=== PATIENT | male | born 1950 | race Hispanic/Latino ===

== ENCOUNTER 2016-11-18 07:28 | Day surgery (SDC) | payer MEDICARE, BC ==
[2016-11-11 12:31] VITALS: BMI 23.7
[2016-11-18] MEDS ORDERED: Iodixanol 320 MG/ML 200 ML BOTTLE IV ONE (07:58)
[2016-11-18] MEDS ORDERED: Lidocaine 2% Inj (20ml) ONE (07:58)
[2016-11-18] MEDS ORDERED: Nitroglycerin 50mg in D5W 50 MG/250 ML BOTTLE IV ONE (07:58)
[2016-11-18] MEDS ORDERED: Iodixanol 320 mg/ml 150 ml Bottle IV ONE (07:58)
[2016-11-18] MEDS ORDERED: Midazolam 2 MG/2 ML VIAL ONE ×2 (08:35→08:42)
[2016-11-18 08:45] LABS: ADD MANUAL DIFF? NO
[2016-11-18 08:48] LABS: BLOOD UREA NITROGEN 22 mg/dL (7-21); CALCIUM 9.4 mg/dL (8.4-10.5); CARBON DIOXIDE 27 mmol/L (21-33); CHLORIDE 103 mmol/L (98-107); GFR AFRICAN-AMERICAN > 60; GLUCOSE,RANDOM 116 mg/dL (70-110); PARTIAL THROMBOPLASTIN TIME 27.5 Seconds (23.7-30.8); POTASSIUM 4.5 mmol/L (3.6-5.0); SODIUM 138 mmol/L (132-148)
[2016-11-18 08:49] LABS: BASO % 0.6 % (0.0-3.0); EOS % 3.2 % (1.5-5.0); GRAN % 61.5 % (50.0-68.0); LYMPH % 24.4 % (22.0-35.0); MONO % 10.3 % (1.0-6.0); RED CELL DISTRIBUTION WIDTH 13.8 % (11.5-14.5); WHITE BLOOD COUNT 4.7 10^3/ul (4.5-11.0)
[2016-11-18 08:50] LABS: BASO # 0.03 K/mm3 (0.0-2.0); EOS # 0.2 (0.0-0.7); GRAN # 2.88 (1.4-6.5); LYMPH # 1.1 (1.2-3.4); MONO # 0.5 (0.1-0.6)
[2016-11-18 08:51] LABS: HEMATOCRIT 39.1 % (42.0-52.0)
[2016-11-18 08:52] LABS: MEAN CELL VOLUME 92.4 fL (80.0-105.0); MEAN CORPUSCULAR HEMOGLOBIN 31.4 pg (25.0-35.0)
[2016-11-18 08:53] LABS: MEAN PLATELET VOLUME 10.7 fl (7.0-11.0); PLATELET COUNT 144 10^3/uL (120.0-450.0)
[2016-11-18] MEDS ORDERED: Oxycodone/Acetaminophen 5/325 mg Tab PO PRN (10:17)
[2016-11-18] MEDS ORDERED: Sodium Chloride 0.45% 1,000 ML IV SCH (10:30)
[2016-11-18 11:30] VITALS: RESP 20; TEMP 97.3; O2SAT 95
[2016-11-18] MEDS ORDERED: Oxycodone/Acetaminophen 5/325 mg Tab ONE (12:15)
[2016-11-18] MEDS ORDERED: Oxycodone/Acetaminophen 5/325 mg Tab PO ONE (12:26)
[2016-11-18 12:51] VITALS: PULSE 70
[2016-11-18 13:17] VITALS: BP 157/83
--- NOTE | 2016-11-18 19:46 | VASCULAR ---
PROCEDURE: 1. Abdominal aortogram and bilateral lower extremity runoff with left selective views. 2. Left SFA and popliteal artery jet stream atherectomy and drug-eluting balloon angioplasty 3. Left tibioperoneal trunk jet stream atherectomy, angioplasty, and drug-eluting stent placement 4. Left profunda femoral artery origin angioplasty HISTORY: Severe peripheral vascular disease. Bilateral lifestyle -limiting claudication, left greater than right. PHYSICIAN(S): Luke De La O M.D. TECHNIQUE: The relative risks and indications of the procedure were explained to the patient and consent obtained. The patient was hydrated prior to the procedure and the appropriate labs drawn. The patient was placed supine on the arteriogram table and the right groin prepped and draped in the usual sterile fashion. Conscious sedation and monitoring were provided throughout the procedure by a nurse. Via a right common femoral artery approach, a 5 Micronesian sheath was placed in the right groin. Through the sheath and over a guidewire, a 5 Micronesian flush catheter was placed in the abdominal aorta at the level of the renal arteries and a PA DSA abdominal aortogram performed. The catheter was pulled down to the aortic bifurcation and bilateral oblique DSA pelvic arteriograms performed. Overlapping bilateral lower extremity DSA arteriograms were obtained from the inguinal ligaments to the ankles. A 0.035 angled Glidewire was advanced over the bifurcation and placed in the left profunda femoral artery.. A 7 Micronesian 45 cm destination sheath was placed in the left common femoral artery. Heparin 6000 units IV and nitroglycerin in 250 mcg aliquots were given. The origin of the left profunda femoral artery was dilated with 7 mm x 6 cm balloon. A good angiographic result was obtained and no stent was required. A trailblazer catheter was placed in the left common femoral artery. The catheter and angled glidewire were used to negotiate the severe irregular calcified stenoses throughout the left SFA and popliteal arteries. Exchange is made for a 0.014 bare wire in the left peroneal artery. Jet stream atherectomy with a 2.4/3.4 catheter was performed in the proximal left SFA, the distal left SFA, the left popliteal artery above the knee, and in the left tibioperoneal trunk. The left popliteal artery above the knee and entire left SFA were dilated with 6 mm drug- eluting balloons. No stents were required. The left tibioperoneal trunk was dilated with 3.0 mm balloon. A focal dissection was encounter. Subsequently a 3.5 x 26 mm drug-eluting stent was deployed in the left tibioperoneal trunk. Completion arteriograms were obtained. The sheath was removed and hemostasis obtained with a Perclose device. Patient tolerated the procedure well. FINDINGS: Diffuse vascular calcification is noted. There are single renal arteries bilaterally which are widely patent and normal in appearance. The nephrograms are symmetric in appearance. The infrarenal abdominal aorta is widely patent without a radiographically significant stenosis. The aortic bifurcation is widely patent. The common and external iliac arteries are calcified and patent.. The left internal iliac artery is occluded. The right internal iliac artery is patent. Right lower extremity: Moderate posterior plaque is noted in the right common femoral artery. The right profunda femoral artery is hypertrophied. There is diffuse calcified disease of the right SFA. A severe stenosis is noted at the origin of the right SFA. There are severe polypoid calcified stenoses in the distal right SFA and the right popliteal artery above the knee. The right popliteal artery is calcified and continuous. There is 2 vessel runoff via the right posterior tibial and peroneal arteries. The right anterior tibial artery is occluded. Left lower extremity: There is moderate calcified posterior plaque in the left common femoral artery. There is a severe focal stenosis of the left profunda femoral artery origin. Left profunda femoral artery is hypertrophied. There is diffuse polypoid calcified disease of the left SFA. Critical stenoses are seen in the proximal left SFA. Severe stenoses are seen in the distal left SFA. There is a severe calcified focal stenosis of the left popliteal artery above the knee. There is a severe stenosis at the left trifurcation. There is 2 vessel runoff via the left posterior tibial and peroneal arteries. The left anterior tibial artery is atretic and occludes proximally. IMPRESSION: 1.Successful diffuse left SFA jet stream atherectomy and drug-eluting balloon angioplasty. 2. Successful left tibioperoneal trunk jet stream atherectomy, angioplasty, and drug-eluting stent placement. 3. Successful left profunda femoral artery origin angioplasty. 4. Multi focal calcified right SFA stenoses. 5. Two vessel tibial runoff bilaterally.
== END 2016-11-18 15:25 | disposition home or self-care (01) ==
LOC: SDSVAS 07:28
PROVIDERS: ATTEND Radiology Vascular & Interventional Radiology
DX: I70.213 Atherosclerosis of native arteries of extremities with intermittent claudication, bilateral legs (principal); I10 Essential (primary) hypertension; Z87.891 Personal history of nicotine dependence

== ENCOUNTER 2017-12-01 06:22 | Day surgery (SDC) | payer MEDICARE, BC ==
[2016-11-11 12:31] VITALS: BMI 23.7
[2017-12-01 07:19] LABS: BASO # 0.01 K/mm3 (0.0-2.0); BASO % 0.2 % (0.0-3.0); EOS # 0.2 (0.0-0.7); EOS % 3.3 % (1.5-5.0); GRAN # 3.09 (1.4-6.5); GRAN % 64.1 % (50.0-68.0); HEMOGLOBIN 13.4 g/dL (14.0-18.0); LYMPH # 1.1 (1.2-3.4); LYMPH % 23.7 % (22.0-35.0); MEAN CELL VOLUME 91.9 fl (80.0-105.0); MEAN CORPUSCULAR HEMOGLOBIN 30.3 pg (25.0-35.0); MONO # 0.4 (0.1-0.6); MONO % 8.7 % (1.0-6.0); RBC 4.42 10^6/uL (3.5-6.1); RED CELL DISTRIBUTION WIDTH 12.8 % (11.5-14.5); WHITE BLOOD COUNT 4.8 10^3/ul (4.5-11.0)
[2017-12-01 07:23] LABS: BLOOD UREA NITROGEN 27 mg/dL (7-21); CALCIUM 9.5 mg/dL (8.4-10.5); GFR AFRICAN-AMERICAN > 60; GFR NON-AFRICAN AMERICAN > 60; HDL CHOLESTEROL 50 mg/dL (29-60)
[2017-12-01 07:24] LABS: INR 0.99 (0.93-1.08); PROTHROMBIN TIME 11.4 SECONDS (9.4-12.5)
[2017-12-01 07:34] LABS: LDL CHOLESTEROL 87 mg/dL (0-129)
[2017-12-01] MEDS ORDERED: Lidocaine 2% Inj (20ml) ONE (07:35)
[2017-12-01] MEDS ORDERED: Iodixanol 320 MG/ML 100 ML BOTTLE IV ONE (07:35)
[2017-12-01] MEDS ORDERED: Iohexol 350mgl/ml 50 ML ONE (07:35)
[2017-12-01] MEDS ORDERED: Iodixanol 320 MG/ML 200 ML BOTTLE IV ONE (07:35)
[2017-12-01] MEDS ORDERED: Midazolam 2 MG/2 ML VIAL ONE ×2 (08:15→08:23)
[2017-12-01] MEDS ORDERED: Eptifibatide 20 mg/10mL Inj IVP ONE (08:39)
--- NOTE | 2017-12-01 09:10 | CARD ---
APPROVED REPORT EKG Measurement Heart [id number] IN [id number] <Conclusion> Electronic ventricular pacemaker
[2017-12-01] MEDS ORDERED: Sodium Chloride 0.9% 1,000 ML IV SCH (09:30)
--- NOTE | 2017-12-01 10:03 | HP ---
HISTORY OF PRESENT ILLNESS: The patient is a 67 year old man with a past medical history of CAD s/p PCI with stent placement s/p CABG who presented for electively scheduled cardiac catheterization with Dr. Cordero after undergoing an abnormal nuclear stress test. The patient underwent successful PCI with LAKSHMI stent placement to the SVG and was subsequently transferred to the telemetry leahy for post cardiac catheterization care. PAST MEDICAL HISTORY: As per HPI, also, hypertension, hyperlipidemia and right carotid artery stenosis s/p endarterectomy. PAST SURGICAL HISTORY: As per HPI, also pacemaker implantation and right carotid endarterectomy. ALLERGIES: NKDA. MEDICATIONS: Eliquis 5 mg p.o. b.i.d., Aspirin 81 mg p.o. daily, Lipitor 10 mg p.o. daily, Lisinopril 5 mg p.o. daily, Lasix 20 mg p.o. daily, Digoxin 0.25 mg p.o. daily and Carvedilol 6.25 mg p.o. b.i.d. FAMILY HISTORY: Noncontributory. SOCIAL HISTORY: The patient denies any toxic habits. REVIEW OF SYSTEMS: A 14-point review of systems is negative except as per HPI. PHYSICAL EXAMINATION: VITAL SIGNS: Temperature 97.6, pulse 80, blood pressure 137/82, respiratory rate 18, oxygen saturation 98% on room air. GENERAL: No apparent distress. HEENT: PERRL, EOMI. No scleral icterus. No conjunctival pallor. NECK: No JVD. No bruits. LUNGS: Clear to auscultation. CARDIOVASCULAR: Regular rate and rhythm. Normal S1 and S2. ABDOMEN: Normoactive bowel sounds. Soft, nontender and nondistended. EXTREMITIES: No edema. NEUROLOGIC: Awake, alert and oriented x 3. No focal motor deficits. LABORATORY DATA: CBC reviewed and unremarkable. CMP reviewed and unremarkable. ASSESSMENT: The patient is a 67 year old man with a past medical history of CAD s/p PCI with stent placement s/p CABG, HTN and hyperlipidemia who presented for electively scheduled cardiac catheterization after undergoing an abnormal nuclear stress test who is now s/p PCI with LAKSHMI stent placement. PLAN: 1. CAD s/p CABG s/p PCI with LAKSHMI stent placement. Input from Dr. Cordero noted and greatly appreciated. Continue with post cardiac catheterization care as per Dr. Cordero. Resume Aspirin 81 mg p.o. daily, Lipitor 40 mg p.o. daily and Plavix 75 mg p.o. daily. 2. Hypertension. Blood pressure controlled. We will continue to monitor hemodynamics and resume antihypertensives as needed. 3. Hyperlipidemia. Continue Lipitor 40 mg p.o. daily. CODE STATUS: Full code. Dimitri Bruno MD MTDD
--- NOTE | 2017-12-01 13:16 | CARD ---
APPROVED REPORT EKG Measurement Heart [id number] <Conclusion> Electronic ventricular pacemaker
--- NOTE | 2017-12-01 13:54 | CARDCATH ---
PROCEDURE DATE: 12/01/2017 CARDIAC CATHETERIZATION AND PTCA HISTORY: The patient is a 67-year-old male who presents with an abnormal stress test. He is status post coronary artery bypass surgery with documented peripheral vascular disease and PTCA in the past. Because of this, cardiac catheterization was recommended. PROCEDURES: Left heart catheterization with coronary arteriography and left ventriculogram followed by GALVAN, angiogram, supra-aortic valvular injection, saphenous vein graft angiogram as well as PTCA and stent of the saphenous vein graft to the RCA. I performed moderate sedation, which included the presence of an independent trained observer that assisted in monitoring the patient's level of consciousness and physiologic status. After administration of Versed and fentanyl, my intra service time was 30 minutes. The findings on catheterization revealed a left ventricle that revealed an ejection fraction of 40-45% which is better than his stress test report. His coronary anatomy revealed diffuse left main disease with and occluded circumflex artery and occluded and an occluded LAD. The RCA was occluded. The saphenous vein graft to the RCA was patent and provided good antegrade flow to the mid and distal RCA. There was a stent in the midportion that was placed and has a 90% stenoses distal to the stent. The saphenous vein graft to the obtuse marginal branch was found to be patent and provided good antegrade flow. The GALVAN to the LAD was found to be patent and provided good antegrade flow. Supra-aortic valvular injection revealed no aortic insufficiency. The patient was started on intravenous Angiomax. He was in addition given a bolus of intravenous Integrilin. A multipurpose guiding catheter was placed to the the saphenous vein graft to the RCA. An 0.014 ATW wire was used to cross the critical lesion. A 3.5 x 12 mm drug-eluting stent was placed and deployed at 17 atmospheres of pressure in the mid saphenous vein graft lesion. A 4 x 6 mm noncompliant balloon was utilized to post dilate the stent. Repeat coronary arteriography revealed an excellent result with no residual stenosis and SERVANDO III flow. Angio-Seal was used to close the femoral artery site. The patient tolerated the procedure well. In summary, the procedure was successful for PTCA and stent to the saphenous vein graft lesion to the RCA. A 3.5 drug-eluting stent was utilized. Cardiac catheterization revealed: 1. Left ventricle with an EF of 40%-45% (which is better than the reported ejection fraction on stress test). 2. Triple-vessel CAD. 3. Patent GALVAN to the LAD. 4. Patent saphenous vein graft to the circumflex artery. 5. Saphenous vein graft with a 90% stenoses to the RCA. 6. No aortic insufficiency and supra-aortic valvular injection. Given these findings, the patient will need to remain on aspirin and Plavix. After several days, we will restart the patient on Eliquis and stop the aspirin and continue the patient on Eliquis and Plavix. Luke Cordero MD [facility] # [id number]
[2017-12-02 06:34] LABS: BASO # 0.01 K/mm3 (0.0-2.0); BASO % 0.2 % (0.0-3.0); EOS # 0.2 (0.0-0.7); EOS % 4.6 % (1.5-5.0); GRAN # 3.58 (1.4-6.5); LYMPH # 0.9 (1.2-3.4); LYMPH % 17.7 % (22.0-35.0); MEAN CELL VOLUME 91.6 fl (80.0-105.0); MEAN CORPUSCULAR HEMOGLOBIN 30.9 pg (25.0-35.0); MEAN CORPUSCULAR HGB CONC 33.7 g/dl (31.0-37.0); MONO # 0.4 (0.1-0.6); MONO % 8.5 % (1.0-6.0); RBC 4.53 10^6/uL (3.5-6.1); RED CELL DISTRIBUTION WIDTH 12.8 % (11.5-14.5); WHITE BLOOD COUNT 5.2 10^3/ul (4.5-11.0)
[2017-12-02 07:10] LABS: BLOOD UREA NITROGEN 16 mg/dL (7-21); CALCIUM 9.4 mg/dL (8.4-10.5); GFR AFRICAN-AMERICAN > 60; GFR NON-AFRICAN AMERICAN > 60
[2017-12-02 07:45] VITALS: BP 144/77; PULSE 92; RESP 20; TEMP 98.2; O2SAT 96
--- NOTE | 2017-12-02 09:54 | PN ---
DATE: 12/02/2017 CARDIOLOGY FOLLOWUP SUBJECTIVE: The patient is ambulating without symptoms. PHYSICAL EXAMINATION: VITAL SIGNS: Stable, heart rate is a paced rhythm at 90. NECK: Negative JVD. LUNGS: Without rales. HEART: Reveals S1, S2. EXTREMITIES: Without edema. The right groin site is stable. LABORATORY DATA: Hemoglobin is 14. BUN and creatinine are unremarkable. IMPRESSION: 1. Status post percutaneous transluminal coronary angioplasty and stent of the vein graft to the right coronary artery with a drug-eluting stent. 2. History of paroxysmal atrial fibrillation. 3. Ischemic dilated cardiomyopathy. 4. History of coronary artery bypass surgery. PLAN: Given these findings, the patient is doing well. He can be discharged today. I have gone over his medications. He should go back on his Eliquis as well as Plavix daily for a year. He is to stop his aspirin given the increased risk of bleeding with triple anticoagulants. He has been advised to go back to the exercise program starting on Tuesday. Luke Cordero MD
--- NOTE | 2017-12-02 14:29 | DS ---
HISTORY OF PRESENT ILLNESS: The patient is a 67-year-old white male in room 265, bed 2. The patient has no complaints . There have been no acute events overnight. The patient was admitted for an elective coronary angiogram secondary to an abnormal stress test. The patient underwent an angioplasty. PHYSICAL EXAMINATION: VITAL SIGNS: Temperature of 98.2, pulse rate of 92, the blood pressure of 144/97, respiratory rate of 20 with an O2 saturation of 96% on room air. HEENT: Unremarkable. NECK: Supple with no bruits, adenopathy or jugular venous distention. LUNGS: Clear bilaterally. HEART: With a regular rate and rhythm with no murmurs, rubs or gallops. ABDOMEN: Soft. It is nontender. No organomegaly is present. EXTREMITIES: Show no edema. NEUROLOGICAL: The patient is intact. DISCHARGE DIAGNOSES: 1. Coronary artery disease. 2. Status post coronary artery bypass graft. 3. Coronary angioplasty. The patient will follow up in the office in approximately 1 week's duration. I thank you. Gordon Bruno MD
== END 2017-12-02 11:16 | disposition home or self-care (01) ==
LOC: CATH 06:22 → 2RNO 09:52 → CATH 12-02 11:16
PROVIDERS: ATTEND Student in an Organized Health Care Education/Training Program
DX: I25.10 Atherosclerotic heart disease of native coronary artery without angina pectoris (principal); I10 Essential (primary) hypertension; I25.5 Ischemic cardiomyopathy; I73.9 Peripheral vascular disease, unspecified; I48.0 Paroxysmal atrial fibrillation; E78.5 Hyperlipidemia, unspecified; Z79.899 Other long term (current) drug therapy; Z95.1 Presence of aortocoronary bypass graft; Z95.5 Presence of coronary angioplasty implant and graft; Z79.82 Long term (current) use of aspirin; Z79.02 Long term (current) use of antithrombotics/antiplatelets; Z79.01 Long term (current) use of anticoagulants
CPT/HCPCS: 36415; 80048; 80061; 85025; 85610; 85730; 86850; 86900; 93005; 93459; 99152; 99153; C1725; C1760; C1769 ×2; C1874; C1887; C2629; C9604; J0583; J1327; J1644; J2250; J3010; J7040 ×2; Q9966; Q9967

== ENCOUNTER 2018-11-30 06:14 | Outpatient (CLI) | payer MEDICARE, BC | END 2018-11-30 06:15 | disposition home or self-care (01) | LOC: CARDIO 06:14 ==